=== PATIENT | female | born 1980 | race Hispanic/Latino ===

== ENCOUNTER → 2020-02-15 | Outpatient (CLI) | payer OTHER ==
--- NOTE | 2020-02-15 08:54 | Diagnostic Imaging Report ---
Right upper quadrant abdominal ultrasound, 02/15/2020. History: Fatty liver. Comparison: None available. Discussion: Transverse and longitudinal images of the right upper quadrant of the abdomen were obtained demonstrating a liver of increased size and echogenicity measuring 20.3 cm in length. There is no evidence of a focal hepatic mass. The portal vein is patent with hepatopetal flow and is within normal limits measuring 13 mm in diameter. The biliary tree is within normal limits with the common bile duct measuring 5 mm in diameter. The gallbladder is absent. The right kidney is normal in size and echogenicity without evidence of hydronephrosis, stones, or mass and measures 12.4 cm in length. The pancreatic <body and tail> are visualized and are normal in appearance. The abdominal aorta is within normal limits. There is no evidence of free fluid. IMPRESSION: 1. Hepatomegaly with diffuse fatty infiltration of the liver, but no focal hepatic abnormality. 2. Status post cholecystectomy. Otherwise unremarkable exam. Signed by: Kota Maradiaga on 02/15/2020 8:51 AM
== END ==
LOC: US 07:38
PROVIDERS: ATTEND Internal Medicine Gastroenterology
DX: K76.0 Fatty (change of) liver, not elsewhere classified (principal)
CPT/HCPCS: 76705